=== PATIENT | male | born 2000 | race Asian ===

== ENCOUNTER 2020-01-26 21:28 | Observation (INO) | payer OTHER ==
[~2020-01-26] VITALS: Ht 175.3 cm; Wt 105.7 kg
[2020-01-26 21:35] VITALS: BP 162/98; TEMP 98.3
[2020-01-26 22:25] LABS: PLATELET COUNT 280 K/uL (142-355)
[2020-01-26 22:50] LABS: POTASSIUM 3.3 mmol/L (3.6-5.2)
[2020-01-26 23:00] VITALS: BP 146/86
[2020-01-27 01:00] VITALS: BP 154/91
[2020-01-27 03:36] VITALS: BP 151/89; TEMP 98.7; Ht 175.3 cm; Wt 105.7 kg
[2020-01-27 06:46] LABS: PLATELET COUNT 287 K/uL (142-355)
[2020-01-27 07:01] LABS: POTASSIUM 3.9 mmol/L (3.6-5.2)
[2020-01-27 08:00] VITALS: BP 134/84; TEMP 98
[2020-01-27] MEDS ORDERED: CIPRO500 MG PO (10:50)
[2020-01-27] MEDS ORDERED: METR250T19 PO (10:54)
[2020-01-27] MEDS ORDERED: DOCU100C10 PO (10:57)
--- NOTE | 2020-01-27 11:52 | NUR ---
PT DISCHARGED HOME AT 1145. 22G IV REMOVED FROM RIGHT AC. TOLERATED WELL. NO BLEEDING OR HEMATOMA TO SITE. PT EDUCATION GIVEN ON DIAGNOSIS, TX, AND SIGNS AND SYMPTOMS OF DISEASE PROCESS. PT SENT WITH PRESCRIPTIONS. EDUCATED PT ON FOLLOW UP MAXINE WITH DR. HALLMAN OFFICE. PT VERBALIZED UNDERSATNDING ON ALL DISCHARGE EDUCATION INSTRUCTIONS. PT AMBULATED TO FACILITY EXIT WITHOUT DIFFICULTY. PT DC'D HOME IN PRIVATE VEHICLE
== END 2020-01-27 11:50 | disposition home or self-care (01) ==
LOC: ED 21:28 → MED/SURG 01-27 02:22 → ED 01-27 02:22 → MED/SURG 01-27 02:22
PROVIDERS: General Practice; Internal Medicine; ADMIT Internal Medicine Endocrinology, Diabetes & Metabolism
DX: K52.89 Other specified noninfective gastroenteritis and colitis (principal); K59.09 Other constipation; E87.2 Acidosis; E83.42 Hypomagnesemia; E87.6 Hypokalemia; D72.828 Other elevated white blood cell count
CPT/HCPCS: 36415; 80053; 81000; 83605; 83690; 83735; 85027; 85651; 87040; 96360; 96361; 96365; 96366; 96375; 99220; 99284; G0378; J1885; J2270; J2405; J2543; J3475; J3480; Q9963

== ENCOUNTER 2022-01-24 21:46 | Emergency (ER) | payer BC ==
[~2022-01-24] VITALS: Ht 175.3 cm; Wt 105.7 kg
[~2022-01-24 21:46] MED LIST: CIPRO500 MG PO; DOCU100C10 PO; METR250T19 PO
[2022-01-24 21:50] VITALS: TEMP 99.2
[2022-01-24 22:55] VITALS: BP 140/92
== END 2022-01-24 22:55 | disposition home or self-care (01) ==
LOC: ED 21:46
DX: J06.9 Acute upper respiratory infection, unspecified (principal); R50.9 Fever, unspecified; Z20.822 Contact with and (suspected) exposure to COVID-19; F17.290 Nicotine dependence, other tobacco product, uncomplicated
CPT/HCPCS: 87502; 87635; 87651; 99283; U0003